=== PATIENT | female | born 1955 | race Caucasian/White ===

== ENCOUNTER 2021-04-23 04:53 | Emergency (ER) | payer OTHER ==
[~2021-04-23] VITALS: Ht 162.6 cm; Wt 85.3 kg
[2021-04-23 04:53] VITALS: BP_SYST 147
[~2021-04-23 04:53] MED LIST: FLUT1DIS3 INH; NEBI5TAB3 PO; OMEP20CA15 PO
--- NOTE | 2021-04-23 04:53 | NUR ---
Patient to ER bed 8 to gown for evaluation. Side rails up. Report given to December.
--- NOTE | 2021-04-23 05:02 | NUR ---
Patient BIB by family from home. C/O LLQ abdominal pain, left lower back pain x today. Patient reported, LLQ abdominal pain, lower back pain, radiate to left groin and left leg, pain rate 9/10, numbness left leg, no weakness.
--- NOTE | 2021-04-23 05:07 | NUR ---
ER Dr. Gutierres at bedside examining patient.
--- NOTE | 2021-04-23 05:10 | NUR ---
# 20 gauge angiocath placed to LAC. Use of asceptic technique. Opsite placed over site. Blood return noted. Blood for lab drawn from site. Flushed with 10 cc of normal saline. No evidence of infiltration noted. Patient tolerated well.
[2021-04-23] MEDS ORDERED: MORPHINE 4 MG INJ. 4 MG/ML VIAL ONE (05:25)
[2021-04-23] MEDS ORDERED: ONDANSETRON HCL 4 MG/2 ML VIAL ONE (05:26)
[2021-04-23] MEDS ORDERED: KETOROLAC TROMETHAMINE 30 MG VIAL ONE (05:26)
[2021-04-23 05:30] LABS: HEMOGLOBIN 15.2 g/dL (12.0-16.0); MEAN CORPUSCULAR HEMOGLOBIN 33 pg (27-31); RED BLOOD CELL COUNT(AUTO) 4.64 MIL/uL (4.2-6.2)
[2021-04-23] MEDS ORDERED: MORPHINE 4 MG INJ. 4 MG/ML VIAL IVP ONE (05:30)
[2021-04-23] MEDS ORDERED: NACL 0.9% 1,000 ML IV ONE ×2 (05:30)
[2021-04-23] MEDS ORDERED: KETOROLAC TROMETHAMINE 30 MG VIAL IVP ONE (05:30)
[2021-04-23] MEDS ORDERED: ONDANSETRON HCL 4 MG/2 ML VIAL IVP ONE (05:30)
[2021-04-23 05:33] LABS: CALCIUM 9.2 mg/dL (8.4-11.0); CREATININE 0.96 mg/dL (0.55-1.30)
[2021-04-23 05:34] LABS: BASOPHILS # (AUTO) 0.1 K/uL (0.0-0.2); BASOPHILS % (AUTO) 0.7 % (0.0-2.0); EOSINOPHILS # (AUTO) 0.1 K/uL (0.0-0.4); EOSINOPHILS % (AUTO) 1.3 % (0.0-4.0); LYMPHOCYTES # (AUTO) 1.6 K/uL (1.0-5.5); LYMPHOCYTES % (AUTO) 19.6 % (20.5-51.5); MEAN CORPUSCULAR HGB CONC 35 % (32-36); MEAN CORPUSCULAR VOLUME 95 fL (79.0-98.0); MONOCYTES # (AUTO) 0.3 K/uL (0.0-1.0); MONOCYTES % (AUTO) 4.2 % (1.7-9.3); NEUTROPHILS # (AUTO) 6.1 K/uL (1.8-7.7); NEUTROPHILS % (AUTO) 74.2 % (40.0-70.0); PLATELET COUNT (AUTO) 308 K/uL (130-430); RED CELL DISTRIBUTION WIDTH 13.1 % (9.0-15.0); WHITE BLOOD COUNT (AUTO) 8.2 K/uL (4.8-10.8)
[2021-04-23 05:40] LABS: ALBUMIN 3.7 g/dL (3.4-4.8); TOTAL BILIRUBIN 0.6 mg/dL (0.0-1.0)
--- NOTE | 2021-04-23 05:42 | NUR ---
Patient transported to radiology via wheelchair, accompanied by systems technician.
[2021-04-23 06:54] LABS: BILIRUBIN,URINE 1+ (NEGATIVE); BLOOD, URINE NEGATIVE (NEGATIVE); CLARITY/URINE CLEAR (CLEAR); COLOR,URINE YELLOW (YELLOW); GLUCOSE,URINE NEGATIVE (NEGATIVE); KETONES,URINE 2+ (NEGATIVE); LEUKOCYTE ESTERASE ,URINE NEGATIVE (NEGATIVE); NITRITE, URINE NEGATIVE (NEGATIVE); PH,URINE 5.5 (5.0-8.0); PROTEIN URINE NEGATIVE (NEGATIVE); UROBILINOGEN,URINE 0.2 (0.2-1.0)
--- NOTE | 2021-04-23 07:03 | NUR ---
Patient resting quietly. No acute distress noted. Vital signs within normal range. Pain rate 3/10
[2021-04-23] MEDS ORDERED: TRAM50TA PO (07:20)
--- NOTE | 2021-04-23 07:29 | NUR ---
PT LAYING IN BED, IN NAD. RESP EVEN AND UNLABORED, ON RA @97%. REPORTS RELIEF FROM MEDS GIVEN, PAIN DECREASE TO 4/10 TO LEFT SIDED ABDOMINAL AREA RADIATING TO LEFT LEG. DENIES ANY N/V/D AT THIS TIME. SKIN W/D/I.
--- NOTE | 2021-04-23 08:09 | NUR ---
DC WITH [facility], HL DC'D. VSS, IN NAD. [facility] FOR DTR TO [facility] ARCHITECT DEVELOPER. AWARE TO GO TO PHARM TO GET MEDICATION ORDERED. TEACHING DONE, VERBALIZED UNDERSTANDING.
[2021-04-23 09:18] VITALS: BP_SYST 116
== END 2021-04-23 09:19 | disposition home or self-care (01) ==
LOC: SED 04:53
DX: M54.16 Radiculopathy, lumbar region (principal); R10.9 Unspecified abdominal pain; I10 Essential (primary) hypertension; J45.909 Unspecified asthma, uncomplicated; Z88.0 Allergy status to penicillin; Z88.8 Allergy status to other drugs, medicaments and biological substances; Z79.899 Other long term (current) drug therapy
CPT/HCPCS: 36415; 74176; 76376; 80053; 81003; 81025; 83690; 85025; 96361; 96374; 96375; 99284; J1885; J2270; J2405; J7030

== ENCOUNTER 2022-08-03 13:28 | Emergency (ER) | payer OTHER ==
[~2022-08-03] VITALS: Ht 162.6 cm; Wt 77.1 kg
[2022-08-03 13:28] VITALS: BP_SYST 151
[~2022-08-03 13:28] MED LIST changes: +TRAM50TA PO
--- NOTE | 2022-08-03 13:30 | NUR ---
BROUGHT BACK TO BED #7 AND TRIAGED. REPORT GIVEN TO HENOK
--- NOTE | 2022-08-03 14:10 | NUR ---
PATIENT AMBULATORY TO ER C/O RIGTH ABDOMINAL PAIN NAUSEA/VOMITING AND SOFT BOWEL MOVEMENT, PLACE IN ROOM 7 AWAITING FOR EDP FOR INITIAL ASSESSMENT.
--- NOTE | 2022-08-03 14:45 | NUR ---
EDP AT BEDSIDE FOR INITIAL ASSESSMENT.
[2022-08-03] MEDS ORDERED: MORPHINE 4 MG INJ. 4 MG/ML VIAL IVP ONE (15:45)
[2022-08-03] MEDS ORDERED: NACL 0.9% 1,000 ML IV ONE (15:45)
[2022-08-03] MEDS ORDERED: ONDANSETRON HCL 4 MG/2 ML VIAL ONE (15:54)
[2022-08-03] MEDS ORDERED: ONDANSETRON HCL 4 MG/2 ML VIAL IVP ONE (16:00)
[2022-08-03 17:30] LABS: BASOPHILS % (AUTO) 0.2 % (0.0-2.0); EOSINOPHILS % (AUTO) 0.1 % (0.0-4.0); HEMATOCRIT 43.3 % (36-48); HEMOGLOBIN 14.5 g/dL (12.0-16.0); LYMPHOCYTES # (AUTO) 1.7 K/uL (1.0-5.5); LYMPHOCYTES % (AUTO) 10.1 % (20.5-51.5); MEAN CORPUSCULAR HEMOGLOBIN 33 pg (27-31); MEAN CORPUSCULAR HGB CONC 34 % (32-36); MEAN CORPUSCULAR VOLUME 98 fL (79.0-98.0); MONOCYTES # (AUTO) 0.8 K/uL (0.0-1.0); MONOCYTES % (AUTO) 4.6 % (1.7-9.3); NEUTROPHILS # (AUTO) 14.2 K/uL (1.8-7.7); PLATELET COUNT (AUTO) 305 K/uL (130-430); RED BLOOD CELL COUNT(AUTO) 4.44 MIL/uL (4.2-6.2); RED CELL DISTRIBUTION WIDTH 12.5 % (9.0-15.0); WHITE BLOOD COUNT (AUTO) 16.7 K/uL (4.8-10.8)
[2022-08-03 17:39] LABS: CALCIUM 8.6 mg/dL (8.4-11.0); CREATININE 0.99 mg/dL (0.55-1.30)
[2022-08-03] MEDS ORDERED: FAMO40TA71 PO (17:39)
[2022-08-03 17:40] LABS: BLOOD, URINE NEGATIVE (NEGATIVE); CLARITY/URINE CLEAR (CLEAR); COLOR,URINE YELLOW (YELLOW); GLUCOSE,URINE NEGATIVE (NEGATIVE); KETONES,URINE 2+ (NEGATIVE); LEUKOCYTE ESTERASE ,URINE TRACE (NEGATIVE); NITRITE, URINE NEGATIVE (NEGATIVE); PH,URINE 5.5 (5.0-8.0); PROTEIN URINE NEGATIVE (NEGATIVE); UROBILINOGEN,URINE 0.2 (0.2-1.0)
[2022-08-03 17:49] LABS: ALBUMIN 3.8 g/dL (3.4-4.8); TOTAL BILIRUBIN 0.5 mg/dL (0.0-1.0)
[2022-08-03 18:03] LABS: BILIRUBIN,URINE NEGATIVE (NEGATIVE)
--- NOTE | 2022-08-03 18:14 | NUR ---
Patient given written and verbal discharge instructions and verbalizes understanding. ER MD discussed with patient the results and treatment provided. Patient in stable condition. ID arm band removed. IV catheter removed intact and dressing applied, no active bleeding. Rx of PEPCID given. Patient educated on pain management and to follow up with PMD. Pain Scale 0. Opportunity for questions provided and answered. Medication side effect fact sheet provided.
[2022-08-03 18:24] LABS: BACTERIA,URINE RARE /HPF (None Seen); MUCUS,URINE None Seen /LPF (None Seen); RBC,URINE 0-3 /HPF (0-3)
== END 2022-08-03 18:13 | disposition home or self-care (01) ==
LOC: SED 13:28
DX: K80.20 Calculus of gallbladder without cholecystitis without obstruction (principal); R10.13 Epigastric pain; J45.909 Unspecified asthma, uncomplicated; I10 Essential (primary) hypertension; Z88.0 Allergy status to penicillin; Z88.6 Allergy status to analgesic agent; Z79.899 Other long term (current) drug therapy; Z20.822 Contact with and (suspected) exposure to COVID-19
CPT/HCPCS: 99284; 74176; 96374; 76700; 96361; 96375; 87426; 80053; 81000; 85025; 87040; 36415; 76376; 83605; J2405; J2270; J7030

== ENCOUNTER 2022-08-28 08:08 | Day surgery (SDC) | payer OTHER ==
[~2022-08-28] VITALS: Ht 162.6 cm; Wt 77.1 kg
[~2022-08-28 08:08] MED LIST changes: +CEFAZOLIN SOD 2 GM in D5W 50 ML IV ONE; +FAMO40TA71 PO
[2022-08-28] MEDS ORDERED: SUGAMMADEX SODIUM 200 MG/2 ML VIAL IV ONE (10:45)
[2022-08-28] MEDS ORDERED: SEVOFLURANE 15 MIN GAS INH ONE (10:45)
[2022-08-28] MEDS ORDERED: ONDANSETRON HCL 4 MG/2 ML VIAL ONE ×2 (10:45→13:48)
[2022-08-28] MEDS ORDERED: CLINDAMYCIN PHOS 600 MG/ D5W 50 ML PREMIX IV ONE (10:45)
[2022-08-28] MEDS ORDERED: fentaNYL CITRATE/PF 100 MCG/2 ML AMP ONE (10:45)
[2022-08-28] MEDS ORDERED: ROCURONIUM BROMIDE 10 MG/ML (ZEMURON) ONE (10:45)
[2022-08-28] MEDS ORDERED: SUCCINYLCHOLINE CHLORIDE 20 MG/ML(QUELICIN) ONE (10:45)
[2022-08-28] MEDS ORDERED: INDOCYANINE GREEN 25 MG VIAL ONE (10:45)
[2022-08-28] MEDS ORDERED: NS IRRIG SOLN 1000 ML IR ONE (10:45)
[2022-08-28] MEDS ORDERED: DEXAMETHASONE SOD PHOSPHATE 4 MG/ML VIAL ONE (10:45)
[2022-08-28] MEDS ORDERED: LR 1,000 ML IV.SOLN IV ONE (10:45)
[2022-08-28] MEDS ORDERED: PROPOFOL 200MG/ 20ML VIAL (DIPRIVAN) IV ONE (10:45)
[2022-08-28] MEDS ORDERED: MEPERIDINE HCL/PF 50 MG/ML VIAL ONE (10:45)
[2022-08-28] MEDS ORDERED: BUPIVACAINE /EPINEPHRINE/PF 0.5% 30 ML VIAL INJ ONE (10:45)
[2022-08-28] MEDS ORDERED: LR 1,000 ML IV SCH (11:30)
[2022-08-28] MEDS ORDERED: KETOROLAC TROMETHAMINE 30 MG VIAL IVP PRN (11:30)
[2022-08-28] MEDS ORDERED: METOCLOPRAMIDE HCL 10 MG/2 ML VIAL IVP PRN (11:30)
[2022-08-28] MEDS ORDERED: MEPERIDINE HCL/PF 25 MG/ML DISP.SYRIN IVP PRN (11:30)
[2022-08-28] MEDS ORDERED: HYDROmorphone 1 MG/ML INJ. CARTRIDGE IVP PRN (11:30)
[2022-08-28] MEDS ORDERED: ONDANSETRON HCL 4 MG/2 ML VIAL IVP PRN (11:30)
[2022-08-28] MEDS ORDERED: KETOROLAC TROMETHAMINE 30 MG VIAL ONE (13:48)
[2022-08-28] MEDS ORDERED: HYDROmorphone 1 MG/ML INJ. CARTRIDGE ONE (14:23)
[2022-08-28 16:57] VITALS: BP_SYST 126
== END 2022-08-28 16:43 | disposition home or self-care (01) ==
LOC: SDS 08:08 → SMU 08:27 → SDS 16:43
PROVIDERS: ATTEND Surgery
DX: K80.12 Calculus of gallbladder with acute and chronic cholecystitis without obstruction (principal); L72.3 Sebaceous cyst; I10 Essential (primary) hypertension; K21.9 Gastro-esophageal reflux disease without esophagitis; J45.909 Unspecified asthma, uncomplicated; Z88.0 Allergy status to penicillin; E78.00 Pure hypercholesterolemia, unspecified; Z20.822 Contact with and (suspected) exposure to COVID-19; Z79.899 Other long term (current) drug therapy
CPT/HCPCS: 47562; 36415; 88304; 87426; J3490 ×3; J1100; J1885; J2405; J2704; J0330; J3010; J1170; J2175; J7120; C1727; J0690; J7060

== ENCOUNTER 2022-10-30 05:00 | Emergency (ER) | payer OTHER ==
[~2022-10-30] VITALS: Ht 160 cm; Wt 80.7 kg
[~2022-10-30 05:00] MED LIST changes: -CEFAZOLIN SOD 2 GM in D5W 50 ML IV ONE
[2022-10-30 05:08] VITALS: BP_SYST 145
--- NOTE | 2022-10-30 05:08 | NUR ---
DR. HANKINS WITH PATIENT IN TRIAGE FOR MSE.
--- NOTE | 2022-10-30 05:10 | NUR ---
PT FROM HOME WITH C/O SORE THROAT X COUPLE OF DAYS. SPEAKING IN FULL SENTENCES, VSS. PT TO WAITING ROOM ACCOMPANIED BY PARTNER.
[2022-10-30] MEDS ORDERED: TYLL650 PO (05:12)
[2022-10-30] MEDS ORDERED: MED4 PO (05:12)
[2022-10-30] MEDS ORDERED: ACETAMINOPHEN WITH CODEINE 12.5 ML UDC PO ONE (05:15)
[2022-10-30] MEDS ORDERED: PRED20TA PO (05:26)
[2022-10-30 05:30] VITALS: BP_SYST 145
--- NOTE | 2022-10-30 05:30 | NUR ---
Patient given written and verbal discharge instructions and verbalizes understanding. ER DR. HANKINS discussed with patient the results and treatment provided. Patient in stable condition. ID arm band removed. Rx of MEDROL, LIQUID TYLENOL, PRESIDONE given. Patient educated on pain management and to follow up with PMD. Pain Scale 0. Opportunity for questions provided and answered. Medication side effect fact sheet provided.
== END 2022-10-30 05:30 | disposition home or self-care (01) ==
LOC: SED 05:00
DX: J02.9 Acute pharyngitis, unspecified (principal); J45.909 Unspecified asthma, uncomplicated; I10 Essential (primary) hypertension; Z88.0 Allergy status to penicillin; Z88.6 Allergy status to analgesic agent; Z79.899 Other long term (current) drug therapy
CPT/HCPCS: 99283